=== PATIENT | female | born 1980 | race Caucasian/White ===

== ENCOUNTER → 2017-06-23 | Outpatient (CLI) | payer MEDICAID ==
[~2017-06-23] MED LIST: HYDROXYZINE HCL25 M1 PO; LABETALOL 100M100 M1 PO
[2017-06-23 17:12] LABS: HEMOGLOBIN 15.3 g/dL (12.2-16.2); LYMPH # 2.9 K/mm3 (0.7-4.5); LYMPH % 24.1 % (10-50.0)
[2017-06-23 17:34] LABS: BUN 7 mg/dL (7-18); GFR (ESTIMATED) 82 ML/MIN (59-)
== END ==
LOC: LAB 16:14
PROVIDERS: Nurse Practitioner Family
DX: R53.83 Other fatigue (principal); F32.9 Major depressive disorder, single episode, unspecified; F41.9 Anxiety disorder, unspecified; I10 Essential (primary) hypertension; Z79.899 Other long term (current) drug therapy; E55.9 Vitamin D deficiency, unspecified